=== PATIENT | female | born 1945 | race Caucasian/White ===

== ENCOUNTER 2017-08-06 13:29 | Inpatient (IN) | payer MEDICARE ==
[~2017-08-06] VITALS: Ht 167.6 cm; Wt 85.0 kg
[2017-08-06] VITALS (13 sets, daily range): BP systolic 105–142; BP diastolic 54–85; PULSE 67–187; RESP 14–22; TEMP 98.8–98.9; O2SAT 95–100
[~2017-08-06 13:29] MED LIST: ALPR0.25 PO; CARD180C5 PO; CYCL5TAB PO; DOCU1CAP66 PO; LEVO137T2 PO; LOSA50TA PO; M2 M100C; SPIRCAP INH; TEMA30CA PO; TRAM50TA PO; TRAZADONE PO; TUMERIC; VENTAER INH; VITA100021 SL; XARE20TA PO
[2017-08-06] MEDS ORDERED: SODIUM CHLOR 0.9% 1000 ML INJ 1,000 ML IV ONE (14:00)
[2017-08-06] MEDS ORDERED: ADENOSINE IV SOLN 3 MG/ML 2 ML VIAL IV PUSH ONE (14:00)
--- NOTE | 2017-08-06 14:13 | PD ---
HPI Chief Complaint: Cardiac Complaint Time Seen by Provider: 13:39 Travel History International Travel<30 days: No Contact w/Intl Traveler<30days: No Traveled to known affect area: No History of Present Illness HPI This 72 year-old woman with a history of A. nadeem, a flutter, status post multiple ablations, with palpitations for the past 5 days with some shortness of breath and dyspnea on exertion as well as fatigue, went for routine appointment with Dr. Robles's and was referred to the emergency department. Symptoms been constant since onset, on changing, unrelieved despite use of her home propafenone. History Past Medical History Narrative Medical A. nadeem, status post multiple ablations, takes when necessary pro-past for known , on warfarin Hypertension hyperlipidemia COPD Asthma Polymyalgia rheumatica, not on any medications Hypothyroidism Antiphospholipid antibody syndrome Menopausal: Yes Social History Alcohol Use: No Tobacco Use: Yes (stopped 8 yrs ago;smoked 20yrs (1/2 pack/day)) Allergies-Medications (Allergen,Severity, Reaction): Coded Allergies: acebutolol (Verified Allergy, Severe, 08/06/17) atenolol (Verified Allergy, Severe, 08/06/17) betaxolol (Verified Allergy, Severe, 08/06/17) carvedilol (Verified Allergy, Severe, 08/06/17) labetalol (Verified Allergy, Severe, 08/06/17) metoprolol (Verified Allergy, Severe, 08/06/17) EXACERBATES ASTHMA morphine (Verified Allergy, Severe, 08/06/17) nebivolol (Verified Allergy, Severe, 08/06/17) pindolol (Verified Allergy, Severe, 08/06/17) propranolol (Verified Allergy, Severe, 08/06/17) sotalol (Verified Allergy, Severe, 08/06/17) timolol (Verified Allergy, Severe, 08/06/17) Reported Meds & Prescriptions Reported Meds & Active Scripts Active Reported Warfarin 5 Mg Tab 5 Mg PO DAILY Prednisone 5 Mg Tab 5 Mg PO DAILY Trazodone (Trazodone HCl) 50 Mg Tab 50 Mg PO HS Flexeril (Cyclobenzaprine HCl) 10 Mg Tab 10 Mg PO BID Levothyroxine (Levothyroxine Sodium) 125 Mcg Tab 125 Mcg PO DAILY Spiriva Handihaler (Tiotropium Inh) 18 Mcg Cap 18 Mcg INH DAILY 1 capsule = 18 mcg Ventolin Hfa 18 GM Inh (Albuterol Sulfate) 90 Mcg/Act Aer 2 Puff INH Q4-6H PRN Alprazolam 0.25 Mg Tab 0.25 Mg PO Q8H PRN Tramadol (Tramadol HCl) 50 Mg Tab 50 Mg PO Q8H PRN Losartan (Losartan Potassium) 50 Mg Tab 50 Mg PO DAILY Temazepam 30 Mg Cap 30 Mg PO HS PRN Review of Systems Except as stated in HPI: all other systems reviewed are Neg Physical Exam Narrative GENERAL: 72 year-old woman, no acute distress. SKIN: Focused skin assessment warm/dry. HEAD: Atraumatic. Normocephalic. EYES: Pupils equal and round. No scleral icterus. No injection or drainage. ENT: No nasal bleeding or discharge. Mucous membranes pink and moist. NECK: Trachea midline. No JVD. CARDIOVASCULAR: Very rapid regular rate. Thready pulses. RESPIRATORY: No accessory muscle use. Clear to auscultation. Breath sounds equal bilaterally. GASTROINTESTINAL: Abdomen soft, non-tender, nondistended. Hepatic and splenic margins not palpable. MUSCULOSKELETAL: No obvious deformities. No edema. NEUROLOGICAL: Awake and alert. No obvious cranial nerve deficits. Motor grossly within normal limits. Normal speech. PSYCHIATRIC: Appropriate mood and affect; insight and judgment normal. Data Data Last Documented VS Vital Signs Date Time Temp Pulse Resp B/P (MAP) Pulse Ox O2 Delivery O2 Flow Rate FiO2 08/06/17 15:34 138 08/06/17 15:00 16 100 Nasal Cannula 2.00 08/06/17 13:40 98.9 Orders Orders Electrocardiogram (08/06/17 ) Sodium Chlor 0.9% 1000 Ml Inj (Ns 1000 M (08/06/17 14:00) Adenosine Inj (Adenocard Inj) (08/06/17 14:00) Complete Blood Count With Diff (08/06/17 14:14) Thyroid Stimulating Hormone (08/06/17 14:14) Diltiazem Inj (Cardizem Inj) (08/06/17 14:15) Comprehensive Metabolic Panel (08/06/17 14:00) Electrocardiogram (08/06/17 ) Vital Signs (Adult) Q15MX4,Q4H (08/06/17 15:24) Well Reactivator Operator / Telemetry NILSA.Q8H (08/06/17 15:24) Cardiac Rhythm NILSA.Q8H (08/06/17 15:24) Notify Dr: Other (08/06/17 15:24) Diltiazem Inj (Cardizem Inj) (08/06/17 15:30) Diltiazem Inj (Cardizem Inj) (08/06/17 15:45) Admit Order (Ed Use Only) (08/06/17 ) Labs Laboratory Tests Test 08/06/17 14:00 White Blood Count 12.5 TH/MM3 Red Blood Count 4.96 MIL/MM3 Hemoglobin 14.5 GM/DL Hematocrit 44.5 % Mean Corpuscular Volume 89.6 FL Mean Corpuscular Hemoglobin 29.3 PG Mean Corpuscular Hemoglobin Concent 32.7 % Red Cell Distribution Width 15.8 % Platelet Count 308 TH/MM3 Mean Platelet Volume 7.4 FL Neutrophils (%) (Auto) 58.8 % Lymphocytes (%) (Auto) 31.1 % Monocytes (%) (Auto) 8.4 % Eosinophils (%) (Auto) 1.1 % Basophils (%) (Auto) 0.6 % Neutrophils # (Auto) 7.4 TH/MM3 Lymphocytes # (Auto) 3.9 TH/MM3 Monocytes # (Auto) 1.0 TH/MM3 Eosinophils # (Auto) 0.1 TH/MM3 Basophils # (Auto) 0.1 TH/MM3 CBC Comment DIFF FINAL Differential Comment Blood Urea Nitrogen 24 MG/DL Creatinine 1.45 MG/DL Random Glucose 96 MG/DL Total Protein 7.8 GM/DL Albumin 3.7 GM/DL Calcium Level 8.9 MG/DL Alkaline Phosphatase 105 U/L Aspartate Amino Transf (AST/SGOT) 18 U/L Alanine Aminotransferase (ALT/SGPT) 16 U/L Total Bilirubin 0.3 MG/DL Sodium Level 137 MEQ/L Potassium Level 4.9 MEQ/L Chloride Level 101 MEQ/L Carbon Dioxide Level 29.1 MEQ/L Anion Gap 7 MEQ/L Estimat Glomerular Filtration Rate 35 ML/MIN Thyroid Stimulating Hormone 3rd Gen 0.681 uIU/ML MDM Medical Decision Making Medical Screen Exam Complete: Yes Emergency Medical Condition: Yes Interpretation(s) My review of EKG: Rapid narrow complex rhythm at a rate of 188, fixed on the monitor, suggestive of an SVT. No flutter waves. Some lateral ST depressions. Differential Diagnosis A. fib, a flutter, SVT, AVNRT, atrial tachycardia, other Narrative Course Medical decision-making 72 year-old woman presents emergency Department with very rapid heart rate, minimal symptoms, history of the same. Suspect SVT. Tried adenosine cardioversion without success. We'll try diltiazem. Patient really doesn't want to stay in the hospital. She attempted pill in the pocket cardioversion at home with her per Nickerson without success. May be a candidate for electrocardioversion. INR was for Dr. Vuong's office today according the patient. Diagnosis Primary Impression: Atrial flutter with rapid ventricular response Admitting Information Admitting Physician Requests: Admit Han Briones MD Aug 06, 2017 14:13
[2017-08-06] MEDS ORDERED: DILTIAZEM HCL 25 MG/5 ML VIAL IV ONE (14:15)
[2017-08-06] MEDS ORDERED: TRAZ50TA12 PO (14:26)
[2017-08-06] MEDS ORDERED: PRED5TAB PO (14:26)
[2017-08-06] MEDS ORDERED: LEVO125T4 PO (14:26)
[2017-08-06] MEDS ORDERED: WARF-23 PO (14:26)
[2017-08-06] MEDS ORDERED: CYCL10TA PO (14:26)
[2017-08-06 14:45] LABS: AUTOMATED NEUTROPHIL # 7.4 TH/MM3 (1.8-7.7); BASOPHIL # 0.1 TH/MM3 (0-0.2); BASOPHIL % 0.6 % (0.0-2.0); EOSINOPHIL # 0.1 TH/MM3 (0-0.4); EOSINOPHIL % 1.1 % (0.0-4.0); HEMATOCRIT 44.5 % (35.0-46.0); HEMO FLAGS DIFF FINAL; LYMPH % 31.1 % (9.0-44.0); LYMPHOCYTE # 3.9 TH/MM3 (1.0-4.8); MEAN CELL VOLUME 89.6 FL (80.0-100.0); MEAN CORPUSCULAR HEMOGLOBIN 29.3 PG (27.0-34.0); MEAN CORPUSCULAR HGB CONC 32.7 % (32.0-36.0); MONO % 8.4 % (0.0-8.0); NEUT % 58.8 % (16.0-70.0); PLATELET COUNT 308 TH/MM3 (150-450); RED BLOOD COUNT 4.96 MIL/MM3 (4.00-5.30); RED CELL DISTRIBUTION WIDTH 15.8 % (11.6-17.2); WHITE BLOOD COUNT 12.5 TH/MM3 (4.0-11.0)
[2017-08-06 15:05] LABS: ALT (GPT) 16 U/L (10-53); ANION GAP 7 MEQ/L (5-15); AST (GOT) 18 U/L (15-37); BICARBONATE 29.1 MEQ/L (21.0-32.0); BLOOD UREA NITROGEN 24 MG/DL (7-18); CHLORIDE 101 MEQ/L (98-107); GLOMERULAR FILTRATION RATE 35 ML/MIN (>89); POTASSIUM 4.9 MEQ/L (3.5-5.1); SODIUM (NA) 137 MEQ/L (136-145)
[2017-08-06 15:16] LABS: ALKALINE PHOSPHATASE 105 U/L (45-117); TOTAL BILIRUBIN ADULT 0.3 MG/DL (0.2-1.0)
[2017-08-06] MEDS ORDERED: DILTIAZEM HCL 25 MG/5 ML VIAL IV PUSH PRN (15:45)
[2017-08-06] MEDS ORDERED: NALOXONE HCL 0.4 MG/ML AMP IV PUSH PRN (16:00)
[2017-08-06] MEDS ORDERED: LACTULOSE SYRUP 20 GM/30 ML CUP PO PRN (16:00)
[2017-08-06] MEDS ORDERED: SODIUM CHLORIDE 0.9% FLUSH 10 ML FLUSH IV FLUSH PRN (16:00)
[2017-08-06] MEDS ORDERED: MAGNESIUM HYDROXIDE SUSP 30 ML CUP PO PRN (16:00)
[2017-08-06] MEDS ORDERED: ONDANSETRON HCL 4 MG/2 ML VIAL IVP PRN (16:00)
[2017-08-06] MEDS ORDERED: ACETAMINOPHEN 325 MG TAB PO PRN (16:00)
[2017-08-06] MEDS ORDERED: BISACODYL 10 MG SUPP RECTAL PRN (16:00)
[2017-08-06] MEDS ORDERED: SENNOSIDES 8.6 MG TAB PO PRN (16:00)
[2017-08-06] MEDS: DILTIAZEM INJ 125 MG in SODIUM CHLORIDE 0.9% INJ 100 ML IV PRN (16:13)
--- NOTE | 2017-08-06 17:21 | HHI.HP ---
[facility] Service [facility] Hospitalists Primary Care Physician Unknown Admission Diagnosis A-Fib RVR Diagnoses: Chief Complaint: A-fib Travel History International Travel<30 Days: No Contact w/Intl Traveler <30 Da: No Traveled to Known Affected Are: No History of Present Illness Lesions is a 72-year-old female with known history of atrial fibrillation who presented to the emergency department with complaint of palpitations for the last 5 days. She states that she has had 6 ablations in the past. She had sudden onset of palpitations a few days ago. She has had some dyspnea with exertion. She states that she is supposed to see her atlassian administrator in [place] next month. She denies chest pain. Review of Systems Constitutional: DENIES: Fever, Chills, Night Sweats Eyes: DENIES: Blurred vision, Vision loss Ears, nose, mouth, throat: DENIES: Hearing loss Respiratory: DENIES: Cough, Wheezing, Sputum production, Shortness of breath Cardiovascular: COMPLAINS OF: Palpitations, Dyspnea on Exertion, DENIES: Chest pain, Lower Extremity Edema Gastrointestinal: DENIES: Abdominal pain, Constipation, Diarrhea, Nausea, Vomiting Genitourinary: DENIES: Urinary frequency, Urinary incontinence, Urgency, Hematuria, Dysuria, Nocturia Musculoskeletal: DENIES: Joint pain, Muscle aches Integumentary: DENIES: Pruritus, Rash Hematologic/lymphatic: DENIES: Bruising Neurologic: DENIES: Headache Past Family Social History Past Medical History Atrial fibrillation, status post multiple ablations Hypertension Hyperlipidemia Asthma History of polymyalgia rheumatica Antiphospholipid antibody syndrome Hypothyroidism Past Surgical History Multiple cardiac ablations Bilateral breast augmentation Umbilical hernia repair section 2 Resection of Cm's sarcoma Cardiac loop recorder placement Reported Medications Warfarin 5 Mg Tab 5 Mg PO DAILY Prednisone 5 Mg Tab 5 Mg PO DAILY Trazodone (Trazodone HCl) 50 Mg Tab 50 Mg PO HS Flexeril (Cyclobenzaprine HCl) 10 Mg Tab 10 Mg PO BID Levothyroxine (Levothyroxine Sodium) 125 Mcg Tab 125 Mcg PO DAILY Spiriva Handihaler (Tiotropium Inh) 18 Mcg Cap 18 Mcg INH DAILY 1 capsule = 18 mcg Ventolin Hfa 18 GM Inh (Albuterol Sulfate) 90 Mcg/Act Aer 2 Puff INH Q4-6H PRN Alprazolam 0.25 Mg Tab 0.25 Mg PO Q8H PRN Tramadol (Tramadol HCl) 50 Mg Tab 50 Mg PO Q8H PRN Losartan (Losartan Potassium) 50 Mg Tab 50 Mg PO DAILY Temazepam 30 Mg Cap 30 Mg PO HS PRN Allergies: Coded Allergies: acebutolol (Verified Allergy, Severe, 08/06/17) atenolol (Verified Allergy, Severe, 08/06/17) betaxolol (Verified Allergy, Severe, 08/06/17) carvedilol (Verified Allergy, Severe, 08/06/17) labetalol (Verified Allergy, Severe, 08/06/17) metoprolol (Verified Allergy, Severe, 08/06/17) EXACERBATES ASTHMA morphine (Verified Allergy, Severe, 08/06/17) nebivolol (Verified Allergy, Severe, 08/06/17) pindolol (Verified Allergy, Severe, 08/06/17) propranolol (Verified Allergy, Severe, 08/06/17) sotalol (Verified Allergy, Severe, 08/06/17) timolol (Verified Allergy, Severe, 08/06/17) Family History Brother has history of diabetes Social History Quit smoking cigarettes 25 years ago. Denies alcohol or illicit drug use. Physical Exam Vital Signs Vital Signs Date Time Temp Pulse Resp B/P (MAP) Pulse Ox O2 Delivery O2 Flow Rate FiO2 08/06/17 17:00 114 16 105/59 (74) 98 Nasal Cannula 2.00 08/06/17 16:13 107 124/85 08/06/17 16:05 74 16 124/85 (98) 100 Room Air 08/06/17 15:53 146 18 105/76 (86) 08/06/17 15:34 138 08/06/17 15:00 101 16 121/64 (83) 100 Nasal Cannula 2.00 08/06/17 14:25 101 16 110/55 (73) 99 Nasal Cannula 2.00 08/06/17 14:00 132 16 132/62 (85) 99 Nasal Cannula 2.00 08/06/17 13:40 98.9 187 20 114/57 (76) 99 08/06/17 13:40 21 Room Air Physical Exam GENERAL: Overweight female in no acute distress. HEENT: Normocephalic, atraumatic. Pupils equal, round and reactive. Extraocular movements intact. No scleral icterus. No injection or drainage. Oropharynx is clear. Mucous membranes are moist. CARDIOVASCULAR: Tachycardic, irregular. RESPIRATORY: Clear to auscultation. No wheezes, rales, or rhonchi. Breathing is non-labored. GASTROINTESTINAL: Abdomen soft, non-tender, nondistended. EXTREMITIES: No lower extremity edema. No calf tenderness. PSYCH: Alert and oriented x 3. Laboratory Laboratory Tests Test 08/06/17 14:00 White Blood Count 12.5 Red Blood Count 4.96 Hemoglobin 14.5 Hematocrit 44.5 Mean Corpuscular Volume 89.6 Mean Corpuscular Hemoglobin 29.3 Mean Corpuscular Hemoglobin Concent 32.7 Red Cell Distribution Width 15.8 Platelet Count 308 Mean Platelet Volume 7.4 Neutrophils (%) (Auto) 58.8 Lymphocytes (%) (Auto) 31.1 Monocytes (%) (Auto) 8.4 Eosinophils (%) (Auto) 1.1 Basophils (%) (Auto) 0.6 Neutrophils # (Auto) 7.4 Lymphocytes # (Auto) 3.9 Monocytes # (Auto) 1.0 Eosinophils # (Auto) 0.1 Basophils # (Auto) 0.1 CBC Comment DIFF FINAL Differential Comment Blood Urea Nitrogen 24 Creatinine 1.45 Random Glucose 96 Total Protein 7.8 Albumin 3.7 Calcium Level 8.9 Alkaline Phosphatase 105 Aspartate Amino Transf (AST/SGOT) 18 Alanine Aminotransferase (ALT/SGPT) 16 Total Bilirubin 0.3 Sodium Level 137 Potassium Level 4.9 Chloride Level 101 Carbon Dioxide Level 29.1 Anion Gap 7 Estimat Glomerular Filtration Rate 35 Thyroid Stimulating Hormone 3rd Gen 0.681 Result Diagram: 08/06/17 1400 08/06/17 1400 Caprini VTE Risk Assessment Caprini VTE Risk Assessment: Mod/High Risk (score >= 2) Caprini Risk Assessment Model Point Value = 1 Point Value = 2 Point Value = 3 Point Value = 5 Age 41-60 Minor surgery BMI > 25 kg/m2 Swollen legs Varicose veins or History of unexplained or recurrent spontaneous Oral contraceptives or hormone replacement Sepsis (< 1 month) Serious lung disease, including pneumonia (< 1 month) Abnormal pulmonary function Acute myocardial infarction Congestive heart failure (< 1 month) History of inflammatory bowel disease Medical patient at bed rest Age 61-74 Arthroscopic surgery Major open surgery (> 45 min) Laparoscopic surgery (> 45 min) Malignancy Confined to bed (> 72 hours) Immobilizing plaster cast Central venous access Age >= 75 History of VTE Family history of VTE Factor V Leiden Prothrombin [id number] Lupus anticoagulant Anticardiolipin antibodies Elevated serum homocysteine Heparin-induced thrombocytopenia Other congenital or acquired thrombophilia Stroke (< 1 month) Elective arthroplasty Hip, pelvis, or leg fracture Acute spinal cord injury (< 1 month) Prophylaxis Regimen Total Risk Factor Score Risk Level Prophylaxis Regimen 0-1 Low Early ambulation 2 Moderate Order ONE of the following: *Sequential Compression Device (SCD) *Heparin 5000 units SQ BID 3-4 Higher Order ONE of the following medications: *Heparin 5000 units SQ TID *Enoxaparin/Lovenox 40 mg SQ daily (WT < 150 kg, CrCl > 30 mL/min) *Enoxaparin/Lovenox 30 mg SQ daily (WT < 150 kg, CrCl > 10-29 mL/min) *Enoxaparin/Lovenox 30 mg SQ BID (WT < 150 kg, CrCl > 30 mL/min) AND/OR *Sequential Compression Device (SCD) 5 or more Highest Order ONE of the following medications: *Heparin 5000 units SQ TID (Preferred with Epidurals) *Enoxaparin/Lovenox 40 mg SQ daily (WT < 150 kg, CrCl > 30 mL/min) *Enoxaparin/Lovenox 30 mg SQ daily (WT < 150 kg, CrCl > 10-29 mL/min) *Enoxaparin/Lovenox 30 mg SQ BID (WT < 150 kg, CrCl > 30 mL/min) AND *Sequential Compression Device (SCD) Assessment and Plan Assessment and Plan 1. Atrial fibrillation with RVR: Continue Cardizem drip. Consult cardiology. Patient has had multiple ablations in the past and states that she wants to go see her atlassian administrator in [place] rather than get another ablation here. On warfarin for anticoagulation. 2. Hypothyroidism: Continue Synthroid. 3. COPD/asthma: Continue bronchodilators, prednisone. Oxygen as needed. 4. Hypertension: Continue losartan. 5. DVT prophylaxis: Coumadin. Check stat INR. Michael Denis MD Aug 06, 2017 17:21
[2017-08-06] MEDS ORDERED: ALPRAZolam 0.25 MG TAB PO PRN (17:30)
[2017-08-06] MEDS ORDERED: TEMAZEPAM 15 MG CAP PO PRN (17:30)
[2017-08-06] MEDS: SODIUM CHLORIDE 0.9% FLUSH 10 ML FLUSH IV FLUSH SCH (21:00)
[2017-08-06] MEDS ORDERED: traZODone HCL 50 MG TAB PO SCH (21:00)
[2017-08-06] MEDS: DOCUSATE SODIUM 50 MG/SENNA 8.6 MG TAB PO SCH (23:21)
[2017-08-06] MEDS: CYCLOBENZAPRINE HCL 10 MG TAB PO SCH (23:21)
[2017-08-07] VITALS (14 sets, daily range): BP systolic 100–118; BP diastolic 45–60; PULSE 58–88; RESP 18–20; TEMP 97.5–98; O2SAT 99–100
[2017-08-07] MEDS ORDERED: LEVOTHYROXINE SODIUM 125 MCG TAB PO SCH (06:00)
[2017-08-07] MEDS: DILTIAZEM INJ 125 MG in SODIUM CHLORIDE 0.9% INJ 100 ML IV PRN (06:09)
[2017-08-07 06:12] LABS: BICARBONATE 26.4 MEQ/L (21.0-32.0); POTASSIUM 4.3 MEQ/L (3.5-5.1)
[2017-08-07 06:13] LABS: INTERNATIONAL NORMALIZED RATIO 3.4 RATIO; PROTHROMBIN TIME - PATIENT 40.2 SEC (9.8-11.6)
[2017-08-07 06:33] LABS: AUTOMATED NEUTROPHIL # 4.9 TH/MM3 (1.8-7.7); BASOPHIL % 0.4 % (0.0-2.0); EOSINOPHIL # 0.2 TH/MM3 (0-0.4); EOSINOPHIL % 2.1 % (0.0-4.0); HEMATOCRIT 36.6 % (35.0-46.0); HEMO FLAGS DIFF FINAL; LYMPH % 35.7 % (9.0-44.0); LYMPHOCYTE # 3.4 TH/MM3 (1.0-4.8); MEAN CELL VOLUME 89.3 FL (80.0-100.0); MEAN CORPUSCULAR HEMOGLOBIN 29.6 PG (27.0-34.0); MEAN CORPUSCULAR HGB CONC 33.2 % (32.0-36.0); NEUT % 51.8 % (16.0-70.0); PLATELET COUNT 249 TH/MM3 (150-450); RED CELL DISTRIBUTION WIDTH 16.1 % (11.6-17.2); WHITE BLOOD COUNT 9.4 TH/MM3 (4.0-11.0)
--- NOTE | 2017-08-07 08:19 | MB ---
cc: ILANA CABRERA M.D. DATE OF CONSULTATION: 08/07/2017 DATE OF : 1945 REASON FOR CONSULTATION Atrial flutter with a rapid ventricular response. HISTORY OF PRESENT ILLNESS The patient is a 72-year-old white female with a history of antiphospholipid antibody syndrome, asthma, paroxysmal atrial fibrillation status post multiple ablations, paroxysmal atrial flutter, COPD, hypertension, polymyalgia rheumatica, who was seen in my office yesterday basically for routine follow-up. However, she was found to be in atrial flutter with probable 1:1 AV conduction. The patient had been experiencing fluttering rapid palpitations for 5 days associated with increased shortness of breath and mild lightheadedness without syncope or near-syncope. She has generally felt fatigued in the last few days. She denies chest pain, pedal edema, paroxysmal nocturnal dyspnea. Most recently the patient has been following with an supervisor mold cleaning and storage in [place], Dr. Rajeev Mcintyre. PAST MEDICAL HISTORY 1. Antiphospholipid antibody syndrome. 2. Asthma. 3. Paroxysmal atrial fibrillation dating back to 1998. She is status post ablation of atrial fibrillation 10/14/2009 and again January 2010 and again August 2012 and July 2013. She had recurrent atrial fibrillation/flutter 08/29/2016 and [place]. Of note, she is status post placement of a watchman device January 2017. 4. Paroxysmal atrial flutter. 5. COPD. 6. Hyperlipidemia. 7. Hypertension. 8. Hypothyroidism. 9. Polymyalgia rheumatica. MEDICATIONS Her cardiac medications at home: 1. Losartan 50 mg daily. 2. Warfarin 5 mg daily. ALLERGIES BETA-BLOCKERS, MORPHINE, SOTALOL. FAMILY HISTORY Noncontributory. SOCIAL HISTORY The patient is a former smoker. There is no history of alcohol abuse. REVIEW OF SYSTEMS Review of systems as in the history of present illness, otherwise negative or noncontributory. She also denies headache, abdominal pain, melena, dyspepsia, bright red blood per rectum. PHYSICAL EXAMINATION VITAL SIGNS: Her blood pressure is 100/45 with a pulse of 60, respirations 18. GENERAL: She is a well-developed, well-nourished white female in no acute distress. HEENT/NECK: Jugular venous pressure is normal. Carotid pulses are 2+ bilaterally and without bruits. CHEST: Examination of the chest reveals unlabored respiratory effort with clear lung chung. CARDIAC: On cardiac examination she has a regular rhythm and rate without S3-S4 or murmur. ABDOMEN: On abdominal examination she has a soft, nontender abdomen. Bowel sounds are present. There is no definite hepatosplenomegaly. EXTREMITIES: Examination of extremities reveals no clubbing, cyanosis or edema. LABORATORY DATA Laboratory data includes WBC 9.4, hemoglobin 12.1, platelets 249, potassium 4.3, BUN 26, creatinine 0.97, troponin 0.76, CK 84, INR 3.4. EKG EKG from 08/06/2017 at 01:41 p.m. shows probable atrial flutter with 1:1 AV conduction, nonspecific ST abnormality. IMPRESSION Paroxysmal atrial flutter with rapid ventricular response in this 72-year-old white female with a history of antiphospholipid antibody syndrome, asthma, paroxysmal atrial fibrillation status post a number of ablations, COPD, hypertension, polymyalgia rheumatica. The patient is now back in sinus rhythm after administration of intravenous Cardizem. Overall, there is no definite evidence for acute coronary syndrome. The slightly elevated troponin level is probably due to the tachyarrhythmia, which I suspect has been ongoing for the last 5 days. I did give her the option of seeing one [facility]. She does prefer following up as an outpatient with her supervisor mold cleaning and storage in [place], who did her most recent atrial fibrillation ablation earlier this year. The patient does have a Watchman atrial appendage closure device. RECOMMENDATIONS 1. She can be discharged home today with a prescription for oral Cardizem CD 120 mg daily. 2. Reduce the warfarin dosing to 5 mg five days out of the week, 2.5 mg two days of the week. 3. She is to call Dr. Rajeev Mcintyre's office this morning for a follow-up in [place] as soon as possible. MD JANNET Hensley/SOPHY /7:49 AM /8:04 AM ANNE-MARIE
[2017-08-07] MEDS ORDERED: TIOTROPIUM BROMIDE 18 MCG INH INH SCH (09:00)
[2017-08-07] MEDS: DOCUSATE SODIUM 50 MG/SENNA 8.6 MG TAB PO SCH (09:00)
[2017-08-07] MEDS ORDERED: WARFARIN SOD 5 MG TAB PO SCH (09:00)
[2017-08-07] MEDS ORDERED: predniSONE 5 MG TAB PO SCH (09:00)
[2017-08-07] MEDS ORDERED: LOSARTAN 50 MG TAB PO SCH (09:00)
[2017-08-07] MEDS: SODIUM CHLORIDE 0.9% FLUSH 10 ML FLUSH IV FLUSH SCH (09:00)
--- NOTE | 2017-08-07 09:35 | EKG ---
Date Performed: 08/07/2017 Time Performed: 01:37:30 PTAGE: 72 years EKG: Sinus rhythm with borderline 1st degree A-V block Lateral ST-T changes are nonspecific Borderline ECG PREVIOUS TRACING : 08/06/2017 20.58 DOCTOR: Han Brown Interpretating Date/Time 08/07/2017 09:33:08
--- NOTE | 2017-08-07 09:41 | EKG ---
Date Performed: 08/06/2017 Time Performed: 20:58:07 PTAGE: 72 years EKG: Sinus rhythm MODERATE ST DEPRESSION ABNORMAL ECG PREVIOUS TRACING : 08/06/2017 15.21 DOCTOR: Han Brown Interpretating Date/Time 08/07/2017 09:37:29
[2017-08-07] MEDS: CYCLOBENZAPRINE HCL 10 MG TAB PO SCH (09:42)
--- NOTE | 2017-08-07 09:57 | EKG ---
Date Performed: 08/06/2017 Time Performed: 15:21:55 PTAGE: 72 years EKG: ATRIAL FIBRILLATION WITH RAPID VENTRICULAR RESPONSE MODERATE ST DEPRESSION ABNORMAL ECG PREVIOUS TRACING : 08/06/2017 15.21 DOCTOR: Han Brown Interpretating Date/Time 08/09/2017 06:43:27
--- NOTE | 2017-08-07 10:00 | EKG ---
Date Performed: 08/06/2017 Time Performed: 13:41:40 PTAGE: 72 years EKG: SUPRAVENTRICULAR TACHYCARDIA MODERATE ST DEPRESSION ABNORMAL ECG NO PREVIOUS TRACING DOCTOR: Han Brown Interpretating Date/Time 08/07/2017 09:59:07
[2017-08-07] MEDS ORDERED: DILTIAZEM-CD 120 MG CAP ER PO ONE (11:15)
[2017-08-07] MEDS ORDERED: WARF-23 PO (11:36)
[2017-08-07] MEDS ORDERED: CARD120C4 PO (11:36)
--- NOTE | 2017-08-07 11:51 | HHI.PR ---
Subjective Remarks Pt feels much better. Denies any CP/SOB/N/V Comfortable going home today Objective Vitals Vital Signs Date Time Temp Pulse Resp B/P (MAP) Pulse Ox O2 Delivery O2 Flow Rate FiO2 08/07/17 11:31 98.0 88 20 118/60 (79) 99 08/07/17 11:30 87 08/07/17 10:39 70 08/07/17 09:00 69 08/07/17 08:00 70 08/07/17 07:00 98.0 67 20 110/58 (75) 100 08/07/17 07:00 68 08/07/17 06:09 60 100/45 08/07/17 05:04 59 08/07/17 04:00 59 08/07/17 03:00 97.5 61 18 100/45 (63) 100 08/07/17 03:00 58 08/07/17 02:00 64 08/07/17 01:00 60 08/07/17 00:00 64 08/06/17 23:01 98.8 70 18 115/73 (87) 96 08/06/17 23:00 71 08/06/17 22:49 08/06/17 20:45 67 14 112/54 (73) 99 Room Air 08/06/17 19:30 106 22 142/75 (97) 97 Room Air 08/06/17 18:00 139 21 130/58 (82) 95 Nasal Cannula 2.00 08/06/17 17:00 114 16 105/59 (74) 98 Nasal Cannula 2.00 08/06/17 16:13 107 124/85 08/06/17 16:05 74 16 124/85 (98) 100 Room Air 08/06/17 15:53 146 18 105/76 (86) 08/06/17 15:34 138 08/06/17 15:00 101 16 121/64 (83) 100 Nasal Cannula 2.00 08/06/17 14:25 101 16 110/55 (73) 99 Nasal Cannula 2.00 08/06/17 14:00 132 16 132/62 (85) 99 Nasal Cannula 2.00 08/06/17 13:40 98.9 187 20 114/57 (76) 99 08/06/17 13:40 21 Room Air I/O 11/7/17 1108/06/17 08/07/17 08/07/17 08/07/17 07:00 15:00 23:00 07:00 15:00 23:00 Intake Total 1000 ml 580 ml Balance 1000 ml 580 ml Intake Oral 480 ml IV Total 1000 ml 100 ml # Bowel Movements 0 Result Diagram: 08/07/1744208/07/17442 Objective Remarks GENERAL: Overweight female in no acute distress. HEENT: EOMI CARDIOVASCULAR: appears regular. no murmurs RESPIRATORY: Clear to auscultation. No wheezes GASTROINTESTINAL: Abdomen soft, non-tender, nondistended. EXTREMITIES: No lower extremity edema. No calf tenderness. PSYCH: Alert and oriented x 3. A/P Assessment and Plan 1. Atrial fibrillation with RVR: s/p Cardizem drip. cardiology evaluated the patient, Started pt on cardizem CD 120mg po daily. INR 3.4, recommends coumadin 5mg po 5days a week and then 2.5 mg 2 days a week. Pt instructed to start the 2.5mg po today and tomorrow then resume 5mg po daily x 5 days. Patient has had multiple ablations in the past and states that she wants to go see her briquetter operator in [place] rather than get another ablation here. Pt comfortable going home today. Script for INR check in 2 days. d/c pt home today f/u w Cards and PCP as an outpatient Monitor INR as an outpatient scripts in chart condition: stable heart healthy diet activity Mary Chaves MD Aug 07, 2017 11:51
[2017-08-11] MEDS ORDERED: ATROPINE SULFATE 1 MG/10 ML SYRINGE ONE (13:00)
[2017-08-11] MEDS ORDERED: EPINEPHrine HCL (1:10,000) 1 MG/10 ML SYRINGE ONE (13:00)
== END 2017-08-07 16:19 | disposition home or self-care (01) | DRG 309 ==
LOC: NEPC 13:29 → NEDA 15:48 → NEDH 19:49 → HCIS 22:53
PROVIDERS: ADMIT Hospitalist; ATTEND Hospitalist
DX: I48.0 Paroxysmal atrial fibrillation (principal); D68.61 Antiphospholipid syndrome; J44.9 Chronic obstructive pulmonary disease, unspecified; I48.92 Unspecified atrial flutter; E03.9 Hypothyroidism, unspecified; I10 Essential (primary) hypertension; E66.3 Overweight; Z68.30 Body mass index [BMI] 30.0-30.9, adult; E78.5 Hyperlipidemia, unspecified; Z79.01 Long term (current) use of anticoagulants; Z79.52 Long term (current) use of systemic steroids; M35.3 Polymyalgia rheumatica; Z85.830 Personal history of malignant neoplasm of bone; Z87.891 Personal history of nicotine dependence; Z98.82 Breast implant status
CPT/HCPCS: 80048; 80053; 82550; 84443; 84484; 85025; 85610; 93005; 96361; 96374; 96375; J0153; J7030